=== PATIENT | male | born 1990 | race Caucasian/White ===

== ENCOUNTER 2023-07-12 01:37 | Emergency (ER) | payer OTHER, BC, SELFPAY ==
[2023-07-12 01:39] VITALS: BP 149/95; PULSE 77; RESP 12; TEMP 36.4; O2SAT 98; BMI 26.8
[2023-07-12 01:46] VITALS: BP 133/88
--- NOTE | 2023-07-12 03:17 | EX.ED.GENINJ ---
HPI History of Present Illness Chief Complaint: Other, Pain/Inj Informant: patient Narrative Narrative: Patient is a 32-year-old male presenting with right-sided neck pain. Patient states he was trying to unjam chip conveyor using a wrench and suddenly jolted and had pain in the right side of his neck radiating down to his shoulder blade area. Denies of difficulty breathing or shortness of breath. Denies any prior neck issues. Denies any numbness or tingling in his arms. Movement of the neck makes his symptoms worse. Did not take any meds prior to arrival. This is a [employer] ER visit. No other complaints or concerns at this time. PFSH PFSH Medical History no medical history Home Medications cyclobenzaprine 10 mg tablet 10 mg PO TID PRN Muscle Spasm #20 TABLETS 07/12/23 [Rx Last Taken Unknown] Allergy/AdvReac Type Severity Reaction Status Date / Time No Known Allergies Allergy Verified 07/12/23 01:44 Social History Smoking Status: Light Smoker (<10/day) ROS ROS ED Constitutional Constitutional ED: Denies chills or fever(s) Eyes Eyes: Denies change in vision ENT ENT ED: Denies ear pain Cardiovascular Cardiovascular: Denies chest pain Respiratory/Chest Respiratory/Chest: Denies dyspnea Gastrointestinal Gastrointestinal: Denies nausea or vomiting Musculoskeletal Musculoskeletal: Reports neck pain; Denies back pain Integumentary Denies rash Neurologic Neurologic: Denies paresthesias or weakness Hematologic/Lymphatic Hematologic/Lymphatic: Denies easy bleeding EXAM Physical Exam Const Vital Signs: 07/12/23 01:39 07/12/23 01:44 07/12/23 01:46 Temperature 97.5 F L Temperature Source Temporal Pulse Rate 77 Respiratory Rate 12 Respiratory Pattern Normal Blood Pressure 149/95 H 133/88 H Blood Pressure Mean 113 103 Pulse Ox 98 Oxygen Delivery Method Room Air Positive well nourished and well developed General Appearance ED: well developed and NAD HEENT Reports TM's clear atraumatic Tympanic Membrane ED: Yes TM's clear Eyes PERRL and EOMs intact bilaterally Neck full ROM Neck Narrative: Tenderness to palpation at the right lateral neck/base of approximately C7. No midline tenderness appreciated. Chest Wall inspection of chest normal and palpation of chest normal Chest Narrative: No chest wall crepitus appreciated Resp normal respiratory effort and clear to auscultation bilaterally Effort and Inspection: Negative for pain with movement Auscultation: Negative for wheezes or diminished lung sounds Cardio regular rhythm and no murmurs Cardio Narrative: 2+ radial pulses Rate: regular rate Back/Spine normal to inspection Thoracic Spine / Upper Back: Negative for thoracic spinal tenderness Extremity Extremity Narrative: Mild tenderness palpation over the right trapezius. No other bony abnormality or tenderness appreciated. Neuro oriented x3, CN's II-XII intact bilaterally, moves all extremities, no focal motor deficits and no sensory deficits noted Psych mental status grossly normal Skin no rashes or lesions noted and no wounds MDM MDM MDM Narrative Medical decision making narrative: Patient evaluated for neck pain that occurred while doing a pulling motion. Suspect he has associated muscle spasm. He does not have any midline tenderness and I do not suspect cervical spine fracture. Pain does not seem particularly radicular and I suspect is more spasm related. Will be given dose of Motrin in the ER and a prescription for Flexeril. Tenderness in area of pain is in the distribution of the right trapezius. He has normal intrinsic extrinsic movements of the hands and normal strength and sensation all dermatomes of the upper extremities. Is given return precautions and will follow-up with the [facility]. Patient verbalized agreement understand this plan. Discharged home in stable condition. Discharge Plan Triage Chief Complaint: Other, Pain/Inj ED Provider: Heather Jenkins Dx/Rx/DC Orders Clinical Impression: Strain of cervical portion of right trapezius muscle Instructions: ED Neck Sprain or Strain Prescriptions: New cyclobenzaprine 10 mg tablet 10 mg PO TID PRN (Reason: Muscle Spasm) Qty: 20 0RF Stand Alone Forms: Work Status Form Primary Care Provider: Care Physician,No Primary Referrals: Corporate,Care [Group of Physicians] - 3-5 Days if not improving Care Physician,No Primary [Primary Care Provider] - Disposition Disposition: Home, Self Care
[2023-07-12] MEDS: Ibuprofen 600 MG Tablet PO (03:25)
== END 2023-07-12 03:29 | disposition home or self-care (01) ==
PROVIDERS: Emergency Provider Emergency Medicine; Visit Provider Emergency Medicine
DX: S16.1XXA Strain of muscle, fascia and tendon at neck level, initial encounter (principal); X50.1XXA Overexertion from prolonged static or awkward postures, initial encounter; Y93.89 Activity, other specified; Y99.0 Civilian activity done for income or pay; F17.200 Nicotine dependence, unspecified, uncomplicated
CPT/HCPCS: 99282